=== PATIENT | male | born 1995 | race Caucasian/White ===

== ENCOUNTER 2019-07-11 13:45 | Emergency (ER) | payer OTHER ==
[~2019-07-11] VITALS: Ht 180.3 cm; Wt 104.7 kg
[2019-07-11] MEDS ORDERED: IBUP80TA PO (15:35)
[2019-07-11] MEDS ORDERED: BACT800T5 PO (15:35)
[2019-07-11 15:39] VITALS: BP 119/67
== END 2019-07-11 15:40 | disposition home or self-care (01) ==
LOC: M ED 13:45
DX: L03.114 Cellulitis of left upper limb (principal); Z79.02 Long term (current) use of antithrombotics/antiplatelets

== ENCOUNTER 2019-12-09 17:17 | Emergency (ER) | payer OTHER ==
[~2019-12-09] VITALS: Ht 182.9 cm; Wt 102.3 kg
[~2019-12-09 17:17] MED LIST: BACT800T5 PO; IBUP80TA PO
[2019-12-09] MEDS ORDERED: ACET-683 PO (17:24)
[2019-12-09] MEDS ORDERED: LIDOCAINE 2% MDV 20ML VIAL SC ONE (18:45)
[2019-12-09] MEDS ORDERED: BACT800T5 PO (18:54)
[2019-12-09] MEDS ORDERED: BACTRIM 160MG/800MG DS TAB PO ONE (19:00)
[2019-12-09 19:09] VITALS: BP 140/74
== END 2019-12-09 19:10 | disposition home or self-care (01) ==
LOC: M ED 17:17
DX: L02.414 Cutaneous abscess of left upper limb (principal); Z86.14 Personal history of Methicillin resistant Staphylococcus aureus infection

== ENCOUNTER 2020-08-06 01:16 | Emergency (ER) | payer OTHER ==
[~2020-08-06] VITALS: Ht 180.3 cm; Wt 104.5 kg
[~2020-08-06 01:16] MED LIST changes: +ACET-683 PO
[2020-08-06 01:57] LABS: HEMATOCRIT 46.7 % (42.0-52.0); HEMOGLOBIN 15.4 g/dl (13.5-17.5); MEAN CORPUSCULAR HEMOGLOBIN 29.4 pg (27.0-33.0); MEAN CORPUSCULAR VOLUME 89.1 fl (80.0-96.0); PLATELET COUNT, AUTOMATED 255 10^3/uL (150-450); RED BLOOD COUNT 5.24 10^6/uL (4.30-6.10); WHITE BLOOD COUNT 9.7 10^3/uL (4.0-10.0)
[2020-08-06 02:22] LABS: AMPHETAMINES LEVEL URINE NEGATIVE (NEGATIVE); BARBITURATES URINE NEGATIVE (NEGATIVE); BENZODIAZEPINES URINE NEGATIVE (NEGATIVE); CANNABINOIDS URINE NEGATIVE (NEGATIVE); COCAINE METABOLITE URINE NEGATIVE (NEGATIVE); METHADONE URINE NEGATIVE (NEGATIVE); OPIATES URINE NEGATIVE (NEGATIVE); PHENCYCLIDINE URINE NEGATIVE (NEGATIVE)
[2020-08-06 02:34] LABS: ACETAMINOPHEN LEVEL < 2.0 UG/ML (10.0-30.0); ALBUMIN 4.8 GM/DL (3.2-5.2); ALT/SGPT 43 U/L (12-78); BILIRUBIN,DIRECT 0.3 MG/DL (0.0-0.2); BILIRUBIN,TOTAL 0.9 MG/DL (0.2-1.0); BLOOD UREA NITROGEN 23 MG/DL (7-18); CALCIUM LEVEL 9.3 MG/DL (8.5-10.1); CARBON DIOXIDE LEVEL 31 MEQ/L (21-32); CHLORIDE LEVEL 104 MEQ/L (98-107); CREATININE FOR GFR 0.88 MG/DL (0.70-1.30); ETHYL ALCOHOL (ETHANOL) < 0.003 % (0.000-0.010); GLOMERULAR FILTRATION RATE > 60.0 (>60); GLUCOSE, FASTING 99 MG/DL (70-100); POTASSIUM SERUM 4.3 MEQ/L (3.5-5.1); SALICYLATE LEVEL < 1.7 MG/DL (5.0-30.0); SODIUM LEVEL 142 MEQ/L (136-145); TOTAL PROTEIN 7.9 GM/DL (6.4-8.2)
[2020-08-06 07:52] LABS: RSV AMPLIFICATION NEGATIVE (NEGATIVE)
--- NOTE | 2020-08-06 08:12 | ECGEPIP ---
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
[2020-08-06 13:49] VITALS: BP 130/63
== END 2020-08-06 13:56 ==
LOC: M ED 01:16
DX: T14.91XA Suicide attempt, initial encounter (principal); T58.12XA Toxic effect of carbon monoxide from utility gas, intentional self-harm, initial encounter; X58.XXXA Exposure to other specified factors, initial encounter; Y92.89 Other specified places as the place of occurrence of the external cause